=== PATIENT | male | born 1970 | race Caucasian/White ===

== ENCOUNTER → 2017-03-10 | Outpatient (CLI) | payer OTHER | LOC: FIMAGING 18:10 | PROVIDERS: ATTEND Family Medicine Sports Medicine | DX: R07.9 Chest pain, unspecified (principal) ==

== ENCOUNTER 2017-04-28 15:25 | Emergency (ER) | payer OTHER ==
[2017-04-28 15:31] VITALS: RESP 16
--- NOTE | 2017-04-28 17:05 | EDPHY ---
H & P Stated Complaint: may have swallowed part of a toothpick Time Seen by Provider: 04/28/17 16:09 HPI/ROS: CHIEF COMPLAINT: Swallowed a toothpick HISTORY OF PRESENT ILLNESS: 46-year-old male reports any a club sandwich when he bit into the toothpick. He removed portion of the toothpick but is concerned that he may have swallowed the other half. This occurred shortly before arrival. He has had no coughing, chest pain, shortness of breath, throat pain, abdominal pain, or vomiting. Denies a choking sensation. Denies a foreign body sensation in his throat. Does report possible mild discomfort in his chest. Patient was otherwise well. REVIEW OF SYSTEMS: Aside from elements discussed in the HPI, a comprehensive 10-point review of systems was reviewed and is negative. PAST MEDICAL HISTORY: Patient denies. SOCIAL HISTORY: . Nonsmoker. VITAL SIGNS Reviewed by me. GENERAL: Well-developed, well-nourished, resting comfortably in no respiratory distress. No drooling. HEENT: Atraumatic. Eyes: No icterus, no injection. Mouth: moist mucous membranes. No posterior pharyngeal erythema or trauma. Neck: supple with no adenopathy. No stridor. LUNGS: Clear to auscultation bilaterally, no wheezes, rhonchi or rales. CARDIAC: Regular rate and rhythm, no rubs, murmurs or gallops. ABDOMEN: Soft, nontender, nondistended, bowel sounds normal. BACK: No CVA tenderness. EXTREMITIES: No trauma. No edema. Range of motion is normal throughout. NEURO: Alert and oriented, grossly nonfocal. SKIN: Warm and dry, no rash. PSYCHIATRIC: Normal mentation, no agitation. - Personal History Current Tetanus/Diphtheria Vaccine: Unsure - Medical/Surgical History Hx Asthma: No Hx Chronic Respiratory Disease: No Hx Diabetes: No Hx Cardiac Disease: No Hx Renal Disease: No Hx Cirrhosis: No Hx Alcoholism: No Hx HIV/AIDS: No Hx Splenectomy or Spleen Trauma: No Other PMH: denies - Social History Smoking Status: Never smoked Constitutional: Initial Vital Signs Temperature (C) 36.7 C 04/28/17 15:30 Heart Rate 70 04/28/17 15:30 Respiratory Rate 16 04/28/17 15:30 Blood Pressure 161/89 H 04/28/17 15:30 O2 Sat (%) 93 04/28/17 15:30 O2 Delivery Mode Room Air Allergies/Adverse Reactions: No Known Allergies Allergy (Unverified 04/28/17 15:28) Home Medications: Medication Instructions Recorded Advair 100/50 (*) 04/28/17 Crestor 04/28/17 Medical Decision Making - Diagnostics Imaging Results: Imaging Impressions Abdomen X-Ray 04/28/17 16:32 Impression: 1. No discernible retained foreign body. 2. Suspect left nephrolithiasis, unchanged since February 2008. Findings discussed with Emergency Department physician, Dr. Carina Canales on April 28, 2017 at 1703 hours. Chest X-Ray 04/28/17 16:32 Impression: No acute pulmonary disease. Imaging: I viewed and interpreted images myself ED Course/Re-evaluation: 46-year-old male who may have swallowed half of the toothpick. He is asymptomatic currently although he is concerned regarding the possibility of internal bleeding. Plain films of the chest and abdomen were taken. These do not demonstrate any secondary evidence of aspiration or retained foreign body. Patient tolerated p.o. fluids and crackers without difficulty. We discussed reasons to return to the emergency department. I reassured the patient that in a significant majority of cases the foreign body will pass without difficulty. As this is a wooden toothpick, I would assumed that it would also be partially digested. Differential Diagnosis: Differential diagnoses for the patient's symptom complex was considered including but not limited to aspiration of toothpick, aspirated foreign body, choking, esophageal foreign body, swallowed foreign body, retained foreign body. Departure - Departure Disposition: Home, Routine, Self-Care Clinical Impression: Swallowed foreign body Condition: Good Instructions: Foreign Body Ingestion (ED) Additional Instructions: Okay to eat a normal diet. Drink plenty of fluids. Return to the emergency department or seek care urgently if he developed fever, abdominal discomfort, bloating, blood in the stools, or other concerns. Referrals: Rogerio Owens MD [Primary Care Provider] - As per Instructions
[2017-04-28 17:33] VITALS: BP 158/85; PULSE 73; TEMP 97.9; O2SAT 97
== END 2017-04-28 17:31 | disposition home or self-care (01) ==
DX: T18.9XXA Foreign body of alimentary tract, part unspecified, initial encounter (principal); X58.XXXA Exposure to other specified factors, initial encounter